=== PATIENT | male | born 1990 | race African-American/Black ===

== ENCOUNTER 2017-11-02 17:04 | Emergency (ER) | payer MEDICAID, OTHER ==
[~2017-11-02] VITALS: Ht 172.7 cm; Wt 91.0 kg
[2017-11-02 17:59] VITALS: BP 136/73
== END 2017-11-02 17:14 | disposition left against medical advice (07) ==
LOC: ER 17:04
DX: Z53.21 Procedure and treatment not carried out due to patient leaving prior to being seen by health care provider (principal)